=== PATIENT | male | born 1940 | race Caucasian/White ===

== ENCOUNTER → 2017-06-13 | Outpatient (CLI) | payer MEDICARE | END | disposition home or self-care (01) | LOC: PMGWOUND 11:24 | DX: L97.222 Non-pressure chronic ulcer of left calf with fat layer exposed (principal); I10 Essential (primary) hypertension; E78.5 Hyperlipidemia, unspecified; J45.909 Unspecified asthma, uncomplicated; Z85.89 Personal history of malignant neoplasm of other organs and systems | CPT/HCPCS: 97597 ==

== ENCOUNTER → 2017-06-21 | Outpatient (CLI) | payer MEDICARE | END | disposition home or self-care (01) | LOC: PMGWOUND 11:07 | DX: L97.222 Non-pressure chronic ulcer of left calf with fat layer exposed (principal); I10 Essential (primary) hypertension; E78.5 Hyperlipidemia, unspecified; J45.909 Unspecified asthma, uncomplicated; Z85.89 Personal history of malignant neoplasm of other organs and systems | CPT/HCPCS: 99214 ==

== ENCOUNTER → 2017-06-28 | Outpatient (CLI) | payer MEDICARE | END | disposition home or self-care (01) | LOC: PMGWOUND 10:52 | DX: L97.222 Non-pressure chronic ulcer of left calf with fat layer exposed (principal); I10 Essential (primary) hypertension; E78.5 Hyperlipidemia, unspecified; J45.909 Unspecified asthma, uncomplicated; Z85.89 Personal history of malignant neoplasm of other organs and systems | CPT/HCPCS: 99214 ==